=== PATIENT | male | born 1975 | race Caucasian/White ===

== ENCOUNTER 2020-08-11 17:11 | Emergency (ER) | payer SELFPAY ==
[~2020-08-11] VITALS: Ht 180.3 cm; Wt 83.9 kg
[2020-08-11 17:14] VITALS: BP_SYST 126
[2020-08-11] MEDS ORDERED: BACITRACIN 1 GM OINT TP ONE (17:31)
[2020-08-11] MEDS ORDERED: CEPH500C2 PO (17:49)
[2020-08-11] MEDS ORDERED: BACI15OI27 TP (17:49)
[2020-08-11 17:57] VITALS: BP_SYST 126
== END 2020-08-11 17:57 | disposition home or self-care (01) ==
LOC: SED 17:11
DX: T14.8XXA Other injury of unspecified body region, initial encounter (principal); Z88.6 Allergy status to analgesic agent; W57.XXXA Bitten or stung by nonvenomous insect and other nonvenomous arthropods, initial encounter; Y93.89 Activity, other specified; Y92.89 Other specified places as the place of occurrence of the external cause; Y99.8 Other external cause status
CPT/HCPCS: 99283

== ENCOUNTER 2020-08-22 15:56 | Emergency (ER) | payer SELFPAY ==
[~2020-08-22] VITALS: Ht 180.3 cm; Wt 81.6 kg
[~2020-08-22 15:56] MED LIST: BACI15OI27 TP; CEPH500C2 PO
[2020-08-22 16:10] VITALS: BP_SYST 119
[2020-08-22 16:40] VITALS: BP_SYST 119
== END 2020-08-22 16:40 | disposition home or self-care (01) ==
LOC: SED 15:56
DX: R46.2 Strange and inexplicable behavior (principal); Z88.6 Allergy status to analgesic agent
CPT/HCPCS: 99281

== ENCOUNTER 2020-09-22 12:46 | Emergency (ER) | payer MEDICAID ==
[~2020-09-22] VITALS: Ht 180.3 cm; Wt 81.6 kg
[~2020-09-22 12:46] MED LIST changes: +BACI15OI13 TP; -BACI15OI27 TP
[2020-09-22 12:56] VITALS: BP_SYST 162
--- NOTE | 2020-09-22 12:56 | NUR ---
Patient to ER bed 5 to gown for evaluation. Side rails up.
--- NOTE | 2020-09-22 12:57 | NUR ---
PT BIBA FOR C/O GENERALIZED BODY PAIN. UPON ARRIVAL PT IS UNCOOPERATIVE AND REFUSING TO ANSWER QUESTIONS. HE CONTINUES TO REPEAT "I'M AN ASSHOLE" AND IS REQUESTING TO LEAVE. PT IS AAX3, V/S STABLE UPON ARRIVAL
--- NOTE | 2020-09-22 12:57 | NUR ---
ER DR. LAM AT THE BEDSIDE EXAMINING PT
[2020-09-22 13:00] VITALS: BP_SYST 162
--- NOTE | 2020-09-22 13:00 | NUR ---
Patient given written and verbal discharge instructions and verbalizes understanding. ER MD discussed with patient the results and treatment provided. Patient in stable condition. ID arm band removed. Patient educated on pain management and to follow up with PMD. Pain Scale 0/10. Opportunity for questions provided and answered. Medication side effect fact sheet provided.
== END 2020-09-22 13:00 | disposition home or self-care (01) ==
LOC: SED 12:46
DX: Z13.89 Encounter for screening for other disorder (principal)
CPT/HCPCS: 99283